=== PATIENT | male | born 1985 ===

== ENCOUNTER 2018-01-11 14:04 | Outpatient (CLI) | payer OTHER | END 2018-01-11 14:05 | disposition home or self-care (01) | LOC: SC 14:04 | PROVIDERS: ATTEND Internal Medicine Pulmonary Disease | DX: G47.8 Other sleep disorders (principal); R06.83 Snoring | CPT/HCPCS: 99203; 99212 ==

== ENCOUNTER 2018-01-12 20:32 | Outpatient (CLI) | payer OTHER | END 2018-01-12 20:33 | disposition home or self-care (01) | LOC: SC 20:32 | PROVIDERS: ATTEND Internal Medicine Pulmonary Disease | DX: R06.83 Snoring (principal); R53.83 Other fatigue | CPT/HCPCS: 95810 ==

== ENCOUNTER 2018-02-01 15:31 | Outpatient (CLI) | payer OTHER | END 2018-02-01 15:32 | disposition home or self-care (01) | LOC: SC 15:31 | PROVIDERS: ATTEND Internal Medicine Pulmonary Disease | DX: G47.26 Circadian rhythm sleep disorder, shift work type (principal) | CPT/HCPCS: 99212; 99213 ==